=== PATIENT | male | born 1965 ===

== ENCOUNTER 2023-12-29 11:15 | Inpatient (IN) | payer OTHER ==
[~2023-12-29] VITALS: Ht 172.7 cm; Wt 78.5 kg
[2023-12-29] MEDS ORDERED: TOPROL XL50 M1 PO (15:08)
[2023-12-29] MEDS ORDERED: ALDACTONE25 MG PO (15:08)
[2023-12-29] MEDS ORDERED: FARXIGA5 MG PO (15:09)
[2023-12-29] MEDS ORDERED: ZESTRIL40 M1 PO (15:09)
[2023-12-29] MEDS ORDERED: LIPITOR40 MG PO (15:10)
[2023-12-29] MEDS ORDERED: MOUNJARO12.5 MG/0. (15:10)
[2023-12-29] MEDS ORDERED: PLAVIX75 MG PO (15:10)
[2024-01-03] MEDS ORDERED: CEFTRIAXONE SODIUM 2,000 MG VIAL ONE (10:09)
[2024-01-03] MEDS ORDERED: METRONIDAZOLE/SODIUM CHLORIDE 500 MG/100 ML PIGGYBACK IV ONE ×2 (10:09→14:00)
[2024-01-03] MEDS ORDERED: CEFTRIAXONE SODIUM 2,000 MG VIAL IV ONE (14:00)
[2024-01-03] MEDS ORDERED: 0.9 % SODIUM CHLORIDE 1,000 ML IV SCH (14:45)
[2024-01-03] MEDS ORDERED: MORPHINE SULFATE 4 MG/ML CARTRIDGE IV PRN (14:45)
[2024-01-03] MEDS ORDERED: OxyCODONE HCL 5 MG TABLET (ROXICODONE) PO PRN (14:45)
[2024-01-03] MEDS ORDERED: DEXTROSE 50 % IN WATER 0.5 G/ML DISP.SYRIN IV PRN ×2 (14:45→18:30)
[2024-01-03] MEDS ORDERED: ONDANSETRON HCL 2 MG/ML VIAL IV PRN (14:45)
[2024-01-03] MEDS ORDERED: MORPHINE SULFATE 4 MG/ML VIAL IV ONE ×3 (15:15→16:30)
[2024-01-03 15:58] LABS: HEMATOCRIT 48.2 % (39.0-48.0); HEMOGLOBIN 15.8 g/dL (13-16.00); MEAN CELL VOLUME 91.9 fL (80.0-100.00); MEAN CORPUSCULAR HEMOGLOBIN 30.2 pg (27.00-32.0); MEAN CORPUSCULAR HGB CONC 32.9 g/dl (32.0-36.0); PLATELET COUNT 265 K/uL (150-450); RED BLOOD COUNT 5.24 M/uL (4.00-6.00); RED CELL DISTRIBUTION WIDTH 13.7 % (11.5-14.5)
[2024-01-03] MEDS ORDERED: METOCLOPRAMIDE HCL 5 MG/ML VIAL ONE (16:23)
[2024-01-03 16:25] LABS: ALBUMIN 3.6 gm/dL (3.4-5.0); CALCIUM 9.3 mg/dL (8.5-10.1); CREATININE SERUM 1.29 mg/dL (0.70-1.30); GFR 56.81; MAGNESIUM 1.7 mg/dL (1.8-2.4); PHOSPHOROUS 3.8 mg/dL (2.5-4.9); POTASSIUM 4.53 mEq/L (3.5-5.1)
[2024-01-03] MEDS ORDERED: POLYETHYLENE GLYCOL 3350 17 GM BLIST.PACK PO SCH (17:00)
[2024-01-03] MEDS ORDERED: GABAPENTIN 300 MG CAPSULE PO SCH (17:00)
[2024-01-03] MEDS ORDERED: SIMETHICONE 125 MG CAPSULE PO SCH (17:00)
[2024-01-03] MEDS ORDERED: HYOSCYAMINE SULFATE 0.125 MG TAB.SUBL SL SCH (17:00)
[2024-01-03] MEDS ORDERED: METOCLOPRAMIDE HCL 5 MG/ML VIAL IV SCH (17:00)
[2024-01-03] MEDS ORDERED: ENALAPRILAT DIHYDRATE 1.25 MG/ML VIAL IV PRN (18:30)
[2024-01-03] MEDS ORDERED: INSULIN LISPRO 1,000 UNIT/10 ML UNITS SUBCUTANEO PRN (18:30)
[2024-01-03] MEDS ORDERED: FAMOTIDINE/PF 20 MG/2 ML VIAL ONE (19:59)
[2024-01-03] MEDS ORDERED: ACETAMINOPHEN 500 MG GEL..CAP PO SCH (20:00)
[2024-01-03 20:30] VITALS: BP 138/76; O2SAT 94
[2024-01-03] MEDS ORDERED: LISINOPRIL 40 MG TABLET PO SCH (21:00)
[2024-01-03] MEDS ORDERED: CELECOXIB 200 MG CAPSULE PO SCH (21:00)
[2024-01-03] MEDS ORDERED: FAMOTIDINE/PF 20 MG/2 ML VIAL IV PUSH SCH (21:00)
[2024-01-04] VITALS: BP 144/74; O2SAT 95
[2024-01-04 07:30] LABS: HEMATOCRIT 47.8 % (39.0-48.0); HEMOGLOBIN 16.2 g/dL (13-16.00); MEAN CORPUSCULAR HEMOGLOBIN 30.5 pg (27.00-32.0); MEAN CORPUSCULAR HGB CONC 33.8 g/dl (32.0-36.0); PLATELET COUNT 238 K/uL (150-450); RED BLOOD COUNT 5.31 M/uL (4.00-6.00); RED CELL DISTRIBUTION WIDTH 13.6 % (11.5-14.5)
[2024-01-04 08:14] LABS: ALBUMIN 3.2 gm/dL (3.4-5.0); CALCIUM 8.8 mg/dL (8.5-10.1); CREATININE SERUM 1.23 mg/dL (0.70-1.30); GFR 60.02; MAGNESIUM 1.7 mg/dL (1.8-2.4); PHOSPHOROUS 3.1 mg/dL (2.5-4.9); POTASSIUM 5.48 mEq/L (3.5-5.1)
[2024-01-04] MEDS ORDERED: LACTOBACILLUS ACIDOPHILUS 1 CAP CAP PO SCH (09:00)
[2024-01-04] MEDS ORDERED: METOPROLOL SUCCINATE 50 MG TAB.SR.24H PO SCH (09:00)
[2024-01-04 09:34] VITALS: BP 132/74; O2SAT 98
[2024-01-04] MEDS ORDERED: MAGNESIUM SULFATE IN WATER 50 ML IV NR (10:30)
[2024-01-04 16:00] VITALS: BP 117/74; O2SAT 95
[2024-01-04] MEDS ORDERED: ATORVASTATIN CALCIUM 40 MG TABLET PO SCH (17:00)
[2024-01-04] MEDS ORDERED: ENOXAPARIN SODIUM 40 MG/0.4 ML SYRINGE SUBCUTANEO SCH (17:00)
[2024-01-05] VITALS: BP 130/63; O2SAT 95
[2024-01-05 07:39] LABS: HEMATOCRIT 44.4 % (39.0-48.0); MEAN CELL VOLUME 91.1 fL (80.0-100.00); MEAN CORPUSCULAR HEMOGLOBIN 30.7 pg (27.00-32.0); MEAN CORPUSCULAR HGB CONC 33.7 g/dl (32.0-36.0); PLATELET COUNT 209 K/uL (150-450); RED BLOOD COUNT 4.87 M/uL (4.00-6.00); RED CELL DISTRIBUTION WIDTH 13.1 % (11.5-14.5)
[2024-01-05 08:00] VITALS: BP 119/78; O2SAT 97
[2024-01-05 08:59] LABS: CALCIUM 8.1 mg/dL (8.5-10.1); CREATININE SERUM 1.19 mg/dL (0.70-1.30); GFR 62.36; MAGNESIUM 2.1 mg/dL (1.8-2.4); POTASSIUM 4.97 mEq/L (3.5-5.1)
[2024-01-05] MEDS ORDERED: ENOXAPARIN SODIUM 40 MG/0.4 ML SYRINGE SUBCUTANEO SCH (09:00)
[2024-01-05 09:14] LABS: PHOSPHOROUS 1.6 mg/dL (2.5-4.9)
[2024-01-05 16:30] VITALS: BP 117/66; O2SAT 95
[2024-01-06 00:52] VITALS: BP 115/63; O2SAT 97
[2024-01-06] MEDS ORDERED: LEVSIN/SL0.125 MG SL (07:41)
[2024-01-06] MEDS ORDERED: NEURONTIN300 MG PO (07:42)
[2024-01-06 08:02] VITALS: BP 103/77; O2SAT 98
== END 2024-01-06 09:47 | disposition home or self-care (01) | DRG 331 ==
LOC: O/R 01-03 06:00 → SURH 01-03 08:30
PROVIDERS: Internal Medicine Geriatric Medicine; ADMIT Surgery; ATTEND Surgery
PROC: 07BB4ZZ Excision of Mesenteric Lymphatic, Percutaneous Endoscopic Approach (ICD-10-PCS; 2024-01-03)
PROC: 0DBB4ZZ Excision of Ileum, Percutaneous Endoscopic Approach (ICD-10-PCS; 2024-01-03)
PROC: 0DTK4ZZ Resection of Ascending Colon, Percutaneous Endoscopic Approach (ICD-10-PCS; principal; 2024-01-03 08:30)
DX: D12.0 Benign neoplasm of cecum (principal)

== ENCOUNTER 2024-01-03 07:54 | Outpatient (CLI) | payer OTHER ==
[~2024-01-03 07:54] MED LIST: ALDACTONE25 MG PO; FARXIGA5 MG PO; LIPITOR40 MG PO; MOUNJARO12.5 MG/0.; PLAVIX75 MG PO; TOPROL XL50 M1 PO; ZESTRIL40 M1 PO
== END 2024-01-03 08:00 | disposition home or self-care (01) ==
LOC: LAB 07:54
PROVIDERS: ATTEND Surgery
DX: E87.5 Hyperkalemia (principal)